=== PATIENT | female | born 2005 | race Caucasian/White ===

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

== ENCOUNTER 2023-03-01 07:01 | Day surgery (SDC) | payer BC ==
[~2023-03-01] VITALS: Ht 167.6 cm; Wt 71.3 kg
[~2023-03-01 07:01] MED LIST: CRUTCHES MC; Ondansetron 4 MG/2 ML VIAL IV PRN
[2023-03-01] MEDS ORDERED: ALLERGY SHOT (07:35)
[2023-03-01] MEDS ORDERED: LR 1,000 ML IV SCH (08:00)
[2023-03-01 08:01] VITALS: BP 123/71; PULSE 86; TEMP 98.3
[2023-03-01] MEDS ORDERED: PROTONIX 40MG T40 MG PO (08:42)
[2023-03-01 08:50] VITALS: BP 111/62; PULSE 72; TEMP 97.2
[2023-03-01 09:05] VITALS: BP 104/59; PULSE 73
[2023-03-01 09:20] VITALS: BP 97/64; PULSE 66
--- NOTE | 2023-03-01 11:47 | NUR ---
0850 PT RETURNED TO BAY 3 POST PROCEDURE. RECEIVED REPORT FROM HAMIDA WOMACK. PT IS DROWSY, BUT RESPONDING TO QUESTIONS. BREATHING IS EVEN AND UNLABORED. DR. LOREDO IN TO UPDATE PT AND HER FATHER ON FINDINGS AND PLAN. 0859 PT GIVEN APPLE JUICE AND CHOCOLATE PUDDING. SHE TOLERATED PO WELL. 0923 PRINTED PHYSICIAN DISCHARGE INSTRUCTIONS AND PT EDUCATIONAL MATERIALS REVIEWED REVIEWED W/ PT AND HER FATHER. QUESTIONS INVITED AND ANSWERED. 0958 PT TO LOBBY VIA WHEEL CHAIR FOR RIDE HOME WITH FATHER IN POV.
== END 2023-03-01 09:38 | disposition home or self-care (01) ==
LOC: SDCO 07:01
DX: K29.30 Chronic superficial gastritis without bleeding (principal); K21.00 Gastro-esophageal reflux disease with esophagitis, without bleeding
CPT/HCPCS: J2704; J7120